=== PATIENT | female | born 1970 | race Caucasian/White ===

== ENCOUNTER 2016-10-25 15:33 | Emergency (ER) | payer OTHER ==
[~2016-10-25] VITALS: Ht 154.9 cm; Wt 93.6 kg
[2016-10-25 15:37] VITALS: TEMP 36.5
[2016-10-25] MEDS ORDERED: SODIUM CHLORIDE 0.9% 1000ML 1,000 ML IV STA (15:48)
[2016-10-25] MEDS ORDERED: ALBUT/IPRATROP 3MG/0.5MG NEB 3 ML VIAL INH STA (15:48)
[2016-10-25] MEDS ORDERED: ONDANSETRON INJ 2 MG/ML 2 ML VIAL IV STA (15:48)
[2016-10-25 15:53] VITALS: Ht 154.9 cm; Wt 93.6 kg
[2016-10-25] MEDS ORDERED: LISI-461 PO (15:53)
[2016-10-25] MEDS ORDERED: PHEN37.585 PO (15:53)
[2016-10-25 15:54] VITALS: O2SAT 99
[2016-10-25 15:55] LABS: BASO % 0.4 %; BASO ABS # 0.03 K/uL (0-0.2); COMPLETE YES; EOS % 3.4 %; HEMATOCRIT 43.1 % (37-47); IG% 0.3 %; LYMPH % 24.9 %; LYMPH ABS # 1.91 K/uL (1.2-3.4); MEAN CELL VOLUME 86.7 fL (80-100); MEAN CORPUSCULAR HEMOGLOBIN 30.2 pg (25-34); MEAN CORPUSCULAR HGB CONC 34.8 g/dl (32-36); MEAN PLATELET VOLUME 9.4 fL (7.4-10.4); MONO % 5.2 %; NEUT % 65.8 %; PLATELET COUNT 362 K/uL (130-400); RED BLOOD COUNT 4.97 M/uL (4.2-5.4); WHITE BLOOD COUNT 7.68 K/uL (4.8-10.8)
[2016-10-25 16:12] LABS: ALT/SGPT 23 U/L (12-78); BLOOD UREA NITROGEN 11 mg/dl (7-18); BUN/CREATININE RATIO 11.3 (10-20); CALCIUM 9.2 mg/dl (8.5-10.1); CARBON DIOXIDE 28 mmol/L (21-32); CHLORIDE 107 mmol/L (98-107); CREATININE 0.95 mg/dl (0.60-1.20); GLUCOSE 96 mg/dl (70-99); POTASSIUM 3.5 mmol/L (3.5-5.1); SODIUM 142 mmol/L (136-145)
[2016-10-25 16:16] LABS: ALB/GLOB RATIO 0.9 (0.9-2); ALKALINE PHOSPHATASE 96 U/L (45-117); AST/SGOT 15 U/L (15-37)
--- NOTE | 2016-10-25 16:20 | DIAGNOSTIC IMAGING REPORT ---
CHEST ONE VIEW PORTABLE HISTORY: 45 years-old Female EVALUATE RESPIRATORY DISTRESS.DYSPNEA acute respiratory distress with cough. Initial exam. COMPARISON: None available. TECHNIQUE: Portable upright AP view of the chest FINDINGS: Cardiomediastinal and hilar silhouettes are within normal limits. There is no pneumothorax, pleural effusion or focal airspace consolidation. The bones of the chest are grossly intact. IMPRESSION: No acute cardiopulmonary process. The above report was generated using voice recognition software. It may contain grammatical, syntax or spelling errors. Electronically signed by: Misael Ivan M.D. 10/25/2016 4:19 PM Dictated Date/Time: 10/25/2016 4:15 PM
[2016-10-25] MEDS ORDERED: AZITHROMYCIN 250 MG TAB PO STA (16:27)
[2016-10-25 16:32] LABS: PREG INTERNAL NEGATIVE QC NEG CLEAR BACKGROUND; PREG INTERNAL POSITIVE QC POS CONTROL LINE
[2016-10-25 17:03] VITALS: PULSE 95; O2SAT 100
[2016-10-25 17:11] VITALS: BP 122/81
[2016-10-25] MEDS ORDERED: PRED20TA2 PO (17:42)
[2016-10-25] MEDS ORDERED: AZIT250T5 PO (17:42)
[2016-10-25] MEDS ORDERED: VNTHFA/IN INH (17:42)
--- NOTE | 2016-10-25 17:55 | EMERGENCY ROOM VISIT NOTE ---
History Report prepared by Sarah: Gregor Astorga Under the Supervision of: Dr. Marco Ybarra D.O. First contact with patient: 15:38 Chief Complaint: COUGH Stated Complaint: DIZZY/WEAK History of Present Illness The patient is a 45 year old female who presents to the Emergency Room with complaints of a persistent cough beginning about a week ago. She has used cough medicine for her symptoms but has seen minimal relief. She states that she felt nauseous following taking the medicine. The patient also complains of subjective fevers, chills, fatigue, and sore throat. She states that she has been around people with similar symptoms. She states that she had a near syncopal event prior to arrival as well. The patient denies any chest pain, SOB , or leg pain. Her LNMP was about a month ago. Source of History: patient Onset: About a week ago Quality: other (cough) Timing: other (persistent) Associated Symptoms: + fevers (subjective), + chills, + sorethroat, + fatigue, No chest pain, No SOB Note: The patient denies any leg swelling. Review of Systems See HPI for pertinent positives & negatives. A total of 10 systems reviewed and were otherwise negative. Past Medical & Surgical Medical Problems: (1) Heart murmur (2) HTN (hypertension) Family History No pertinent family history stated. Social History Occupation Status: employed Current/Historical Medications Scheduled Albuterol Hfa (Ventolin Hfa), 1 PUFF INH Q4 Azithromycin (Zithromax), 250 MG PO DAILY Lisinopril (Zestril), 10 MG PO QAM Phentermine Hcl (Adipex P), 0.5 TAB PO BID Prednisone (Prednisone Tab), 40 MG PO DAILY Allergies Coded Allergies: Codeine (Unverified Allergy, Unknown, HIVES/THROAT CLOSES, 10/25/16) Penicillins (Unverified Allergy, Unknown, HIVES, 10/25/16) Physical Exam Vital Signs Date Time Temp Pulse Resp B/P (MAP) Pulse Ox O2 Delivery O2 Flow Rate FiO2 10/25/16 17:11 122/81 10/25/16 17:03 95 19 100 10/25/16 16:33 112 15 100 10/25/16 16:03 108 19 100 10/25/16 15:54 99 Room Air 10/25/16 15:50 83 10/25/16 15:41 99 Room Air 10/25/16 15:39 98 Room Air 10/25/16 15:37 122/86 10/25/16 15:37 36.5 88 20 122/86 98 Room Air Physical Exam GENERAL: Patient is awake, alert, and in no acute distress. Patient is resting comfortably and showing no signs of anxiety EYES: The conjunctivae are clear. The pupils are round and reactive. EARS, NOSE, MOUTH AND THROAT: The nose is without any evidence of any deformity. Mucous membranes are moist tongue is midline NECK: The neck is nontender and supple. RESPIRATORY: : Diminished throughout with scattered rhonchi. No tachypnea or conversational dyspnea CARDIOVASCULAR: Regular rate and rhythm noted there no murmurs rubs or gallops normal S1 normal S2 GASTROINTESTINAL: The abdomen is soft. Bowel sounds are present in all quadrants. Abdomen is nontender MUSCULOSKELETAL/EXTREMITIES: There is no evidence of gross deformity full range of motion is noted in the hips and shoulders SKIN: There is no obvious evidence of any rash. There are no petechiae, pallor or cyanosis noted. NEUROLOGIC: Patient is awake alert and oriented x3 Medical Decision & Procedures ER Provider Diagnostic Interpretation: Radiology results as stated below per my review and radiologist interpretation: CHEST ONE VIEW PORTABLE FINDINGS: Cardiomediastinal and hilar silhouettes are within normal limits. There is no pneumothorax, pleural effusion or focal airspace consolidation. The bones of the chest are grossly intact. IMPRESSION: No acute cardiopulmonary process. The above report was generated using voice recognition software. It may contain grammatical, syntax or spelling errors. Electronically signed by: Misael Ivan M.D. 10/25/2016 4:19 PM Laboratory Results 10/25/16 15:20 Red Blood Count 4.97, Mean Corpuscular Volume 86.7, Mean Corpuscular Hemoglobin 30.2, Mean Corpuscular Hemoglobin Concent 34.8, Mean Platelet Volume 9.4, Neutrophils (%) (Auto) 65.8, Lymphocytes (%) (Auto) 24.9, Monocytes (%) (Auto) 5.2, Eosinophils (%) (Auto) 3.4, Basophils (%) (Auto) 0.4, Neutrophils # (Auto) 5.06, Lymphocytes # (Auto) 1.91, Monocytes # (Auto) 0.40, Eosinophils # (Auto) 0.26, Basophils # (Auto) 0.03 10/25/16 15:20 Test 10/25/16 15:20 10/25/16 16:05 White Blood Count 7.68 K/uL (4.8-10.8) Red Blood Count 4.97 M/uL (4.2-5.4) Hemoglobin 15.0 g/dL (12.0-16.0) Hematocrit 43.1 % (37-47) Mean Corpuscular Volume 86.7 fL (80-100) Mean Corpuscular Hemoglobin 30.2 pg (25-34) Mean Corpuscular Hemoglobin Concent 34.8 g/dl (32-36) Platelet Count 362 K/uL (130-400) Mean Platelet Volume 9.4 fL (7.4-10.4) Neutrophils (%) (Auto) 65.8 % Lymphocytes (%) (Auto) 24.9 % Monocytes (%) (Auto) 5.2 % Eosinophils (%) (Auto) 3.4 % Basophils (%) (Auto) 0.4 % Neutrophils # (Auto) 5.06 K/uL (1.4-6.5) Lymphocytes # (Auto) 1.91 K/uL (1.2-3.4) Monocytes # (Auto) 0.40 K/uL (0.11-0.59) Eosinophils # (Auto) 0.26 K/uL (0-0.5) Basophils # (Auto) 0.03 K/uL (0-0.2) RDW Standard Deviation 41.0 fL (36.4-46.3) RDW Coefficient of Variation 12.9 % (11.5-14.5) Immature Granulocyte % (Auto) 0.3 % Immature Granulocyte # (Auto) 0.02 K/uL (0.00-0.02) Anion Gap 7.0 mmol/L (3-11) Est Creatinine Clear Calc Drug Dose 77.2 ml/min Estimated GFR () 83.3 Estimated GFR (Non- 71.8 BUN/Creatinine Ratio 11.3 (10-20) Calcium Level 9.2 mg/dl (8.5-10.1) Total Bilirubin 0.2 mg/dl (0.2-1) Aspartate Amino Transf (AST/SGOT) 15 U/L (15-37) Alanine Aminotransferase (ALT/SGPT) 23 U/L (12-78) Alkaline Phosphatase 96 U/L (45-117) Troponin I < 0.015 ng/ml (0-0.045) Total Protein 7.7 gm/dl (6.4-8.2) Albumin 3.7 gm/dl (3.4-5.0) Globulin 4.0 gm/dl (2.5-4.0) Albumin/Globulin Ratio 0.9 (0.9-2) Human Chorionic Gonadotropin, Qual NEG (NEG) Influenza Type A Antigen Neg for Influ A (NEG) Influenza Type B Antigen Neg for Influ B (NEG) Laboratory results per my review. Medications Administered Medications (Trade) Dose Ordered Sig/Stacey Route Start Time Stop Time Status Last Admin Dose Admin Sodium Chloride 1,000 ml @ 999 mls/hr Q1H1M STAT IV 10/25/16 15:48 10/25/16 16:48 DC 10/25/16 16:04 999 MLS/HR Ondansetron HCl (Zofran Inj) 4 mg NOW STAT IV 10/25/16 15:48 10/25/16 15:49 DC 10/25/16 16:04 4 MG Albuterol/ Ipratropium (Duoneb) 3 ml NOW STAT INH 10/25/16 15:48 10/25/16 15:49 DC 10/25/16 16:04 3 ML Azithromycin (Zithromax Tab) 500 mg NOW STAT PO 10/25/16 16:27 10/25/16 16:28 DC 10/25/16 17:13 500 MG Prednisone (PredniSONE TAB) 60 mg NOW STAT PO 10/25/16 16:27 10/25/16 16:28 DC 10/25/16 17:12 60 MG ECG Indication: other (fatigue) Rate (beats per minute): 86 Rhythm: normal sinus Findings: no ectopy, other (No acute ST segment abnormalities) Comparison ECG Date: no prior available ED Course 1546: The patient was evaluated in room B9. A complete history and physical examination were performed. 1548: Ordered DuoNeb 3 mL INH, Zofran Inj 4 mg IV, NSS 1,000 ml @ 999 mls/hr IV. 1627: Ordered Prednisone Tab 60 mg PO, Zithromax Tab 500 mg PO. 1740: Upon reevaluation, the patient is resting comfortably. I discussed the results and treatment plan with her. She verbalized agreement of the treatment plan. The patient was discharged home. Medical Decision Differential diagnosis: Etiologies such as infections, reactive airway disease, pneumonia, pneumothorax , COPD, CHF, cardiac ischemia, pulmonary embolism, musculoskeletal, gastrointestinal, as well as others were entertained. Nursing notes reviewed. The patient is a 45-year-old female who presented to the emergency department for an evaluation. The patient's suffering with a cough over the last few days. She took [id number] cough medication and states that she became very dizzy and did not feel well. The patient did not have hypoxia or tachycardia. She was treated with a DuoNeb in the emergency department. She had no signs of pneumonia and chest x-ray and I assume at this time this could be related to a bronchitis. She was started on prednisone and an antibiotic in the emergency department. She was reevaluated multiple times. I discussed the patient's laboratory and radiographic studies with her. She was encouraged to rest and avoid any strenuous activity. She was also encouraged to continue all medications as prescribed. She was also encouraged to call her primary care physician to schedule a follow-up appointment but return to the emergency department immediately if symptoms change worsen or the need arises. Medication Reconcilliation Current Medication List: was personally reviewed by me Blood Pressure Screening Patient's blood pressure: Normal blood pressure Blood pressure disposition: Did not require urgent referral Impression Primary Impression: Acute bronchitis Scribe Attestation The scribe's documentation has been prepared under my direction and personally reviewed by me in its entirety. I confirm that the note above accurately reflects all work, treatment, procedures, and medical decision making performed by me. Departure Information Dispostion Home / Self-Care Prescriptions Prednisone (Prednisone Tab) 20 Mg Tab 40 MG PO DAILY, #10 TAB Prov: Marco Ybarra, DO 10/25/16 Albuterol Hfa (VENTOLIN HFA) 200 Puffs/62069 Mcg Aers 1 PUFF INH Q4, #1 INHALER Prov: Marco Ybarra, DO 10/25/16 Azithromycin (ZITHROMAX) 250 Mg Tab 250 MG PO DAILY, #4 TAB Prov: Marco Ybarra, DO 10/25/16 Referrals Efrain Arteaga M.D. (PCP) Forms HOME CARE DOCUMENTATION FORM, IMPORTANT VISIT INFORMATION Patient Instructions Bronchitis Acute, My [facility] Additional Instructions Continue all medications as prescribed. Start taking the Zithromax and the prednisone tomorrow because he were given the first dose today in the emergency department. Rest and avoid any strenuous activity. Return to the emergency department immediately if symptoms change worsen or the need arises.
== END 2016-10-25 17:30 | disposition home or self-care (01) ==
LOC: EDBD 15:33 → C.EDB 15:34
DX: J20.9 Acute bronchitis, unspecified (principal); I10 Essential (primary) hypertension; Z79.899 Other long term (current) drug therapy